=== PATIENT | female | born 1995 | race Caucasian/White ===

== ENCOUNTER → 2016-07-27 | Outpatient (REF) | payer OTHER ==
[2016-07-27 18:07] LABS: BASO % 0.2 % (0.0-1.0); EOS # 0.5 K/mm3 (0.0-0.50); LARGE UNSTAINED CELL # 0.2 K/mm3 (0.0-0.4); LARGE UNSTAINED CELL % 1.7 % (0.0-4.0); LYMPH # 1.8 K/mm3 (1.5-6.5); LYMPH % 21.1 % (24.0-44.0); MEAN CORPUSCULAR HEMOGLOBIN 30.6 pg (27.0-33.0); MEAN CORPUSCULAR HGB CONC 33.7 g/dl (32.0-36.5); MEAN CORPUSCULAR VOLUME 90.8 fl (80.0-96.0); MONO # 0.4 K/mm3 (0.0-0.8); MONO % 4.1 % (0.0-5.0); NEUTROPHILS # 5.8 K/mm3 (1.8-7.7); NEUTROPHILS % 66.8 % (36.0-66.0); PLATELET COUNT, AUTOMATED 257 k/mm3 (150-450); RED CELL DISTRIBUTION WIDTH 13.8 % (11.5-14.5); WHITE BLOOD COUNT 8.6 K/mm3 (4.0-10.0)
[2016-07-28 10:18] LABS: CONTROL LINE HPYORI INT CTR LINE PRESENT
== END ==
LOC: M SFHCLERA 13:45
PROVIDERS: ATTEND Family Medicine
DX: K29.00 Acute gastritis without bleeding (principal)
CPT/HCPCS: 85025; 86677; G0463

== ENCOUNTER → 2016-07-31 | Outpatient (CLI) | payer OTHER ==
--- NOTE | 2016-08-01 22:23 | REP ---
Pelvic ultrasound non OB, 07/31/2016 Indication: Pelvic pain Comparison: None Findings: Study was performed transabdominally. Pt. was menstruating and stated she would return if needed for transvaginal ultrasound after menstrual period Date of last menstrual period 07/29/2016 Uterus measures 7.1 x 2.8 x 5.3 cm. The endometrium is 3 mm in thickness and smooth. Right ovary measures 2.6 x 1.1 x 1.4 cm and contains few small follicles. Left ovary measures 4.4 x 2.0 x 2.6 cm and contains a dominant cyst of 2.4 x 1.9 x 1.8 cm which lies posterior to the uterus, in the region of the cul-de-sac. Arterial perfusion was documented only to the right ovary. There is no free fluid in cul-de-sac Impression 1. Anteverted uterus with endometrium 3 mm in thickness and smooth 2. Small bilateral ovarian follicles, largest 2.4 cm maximal dimension on the left. Arterial Doppler perfusion could not be documented within the left ovary. Recommend that the patient return for transvaginal pelvic ultrasound to document arterial and venous doppler wave forms in the in the ovaries. No free fluid in cul-de-sac . Signed by Martita Bajwa MD 08/01/2016 10:15 P
== END ==
LOC: M LRY 13:47
PROVIDERS: ATTEND Family Medicine
DX: N85.4 Malposition of uterus (principal); N83.01 Follicular cyst of right ovary; N83.02 Follicular cyst of left ovary

== ENCOUNTER → 2016-08-11 | Outpatient (CLI) | payer OTHER ==
--- NOTE | 2016-08-12 06:04 | REP ---
Clinical: Pelvic pain. Comparison: 07/31/2016 . Technique: Transvaginal examination with color Doppler evaluation of the ovaries. Findings: Normal anteverted uterus measures 7.2 x 2.9 x 4.6 cm . The endometrial complex measures 7.5 mm thickness. No discrete uterine or endometrial abnormalities are appreciated. Bilateral ovaries are normal in appearance and vascularity without evidence for torsion. Right ovary measures 2.5 x 1.8 x 2.6 cm ; R I = 0.57 . Left ovary measures 4.4 x 1.7 x 3.3 cm and includes 2.5 cm cyst ; R I = 0.48 . No pelvic fluid or adnexal mass lesion. Impression: 1. 2.5 cm likely physiologic left ovarian cyst. II. Normal vascularity to the bilateral ovaries without evidence for torsion. 3. Normal appearance to the uterus. Signed by Kumar Washington MD 08/12/2016 05:56 A
== END ==
LOC: M LRY 13:43
PROVIDERS: ATTEND Family Medicine
DX: N83.202 Unspecified ovarian cyst, left side (principal)

== ENCOUNTER → 2017-10-07 | Outpatient (CLI) | payer OTHER | LOC: M LRY 15:19 | DX: M70.41 Prepatellar bursitis, right knee (principal) ==